=== PATIENT | male | born 1975 | race Caucasian/White ===

== ENCOUNTER → 2017-03-20 | Outpatient (CLI) | payer OTHER ==
--- NOTE | 2017-03-20 15:43 | KCIC ---
MRI Lumbar Spine without contrast History: Lumbar radiculopathy, chronic low back pain into the left leg, numbness in left leg and foot, lifting injury many years ago Technique: Multiplanar, multi sequential noncontrast MR imaging was performed of the lumbar spine. Contrast: None Comparison: None Findings: Lumbar vertebral body stature and AP alignment are preserved. There is mild degenerative disc disease L5-S1, posterior annular tear at this level. There is no significant marrow edema. Conus terminates normally at L1-2. L3-L4: Neural foramina and spinal canal are adequate. L4-L5: Spinal canal and neural foramina are adequate. L5-S1: There is a very shallow posterior central protrusion on the order of 2 to 3 mm AP by 13 mm transverse by 6 mm CC, near the descending right S1 nerve root without significant impingement. Spinal canal is overall adequate. Neural foramina are adequate. Impression: 1. There is mild degenerative disc disease at L5-S1, shallow posterior protrusion with associated annular tear at this level without significant impingement of the descending S1 nerve roots or spinal stenosis. Electronically signed by: Lew Peoples MD (03/20/2017 3:39 PM)
== END | disposition home or self-care (01) ==
LOC: KCIC MRI 14:39
PROVIDERS: ATTEND Anesthesiology Pain Medicine
DX: M51.37 Other intervertebral disc degeneration, lumbosacral region (principal)
CPT/HCPCS: 72148

== ENCOUNTER → 2020-01-21 | Outpatient (CLI) | payer OTHER ==
--- NOTE | 2020-01-21 09:47 | CARD ---
MR#: [id number] Date of Study: 01/21/2020 Ordering Physician: TORI QUINN, Referring Physician: TORI QUINN, Tech: Nicolle Prajapati APPROVED REPORT EXAM: Two-dimensional and M-mode echocardiogram with Doppler and color Doppler. Other Information Quality : GoodHR: 63bpm INDICATION Atrial Fibrillation RISK FACTORS Hyperlipidemia 2D DIMENSIONS RVDd3.3 (2.9-3.5cm)Left Atrium(2D)3.5 (1.6-4.0cm) IVSd1.2 (0.7-1.1cm)Aortic Root(2D)3.4 (2.0-3.7cm) LVDd5.2 (3.9-5.9cm)LVOT Diameter2.0 (1.8-2.4cm) PWd1.0 (0.7-1.1cm)LVDs4.1 (2.5-4.0cm) FS (%) 21.8 %SV57.1 ml LVEF(%)43.8 (>50%) Aortic Valve AoV Peak Aba.115.8cm/sAoV VTI25.5cm AO Peak GR.5.4mmHgLVOT Peak Aba.95.9cm/s LVOT VTI 20.68cmAO Mean GR.3mmHg SIDNEY (VMAX)1.64yx6CQZ (VTI)2.58cm2 Mitral Valve MV E Rpjgoowr453.0cm/sMV DECEL LZRL461yd MV A Qnaalhli53.9cm/sMV E Mean Gr.2mmHg MV SJI68npZ/A Ratio2.8 MVA (PHT)4.79cm2 TDI E/Lateral E'8.9E/Medial E'10.3 Pulmonary Valve PV Peak Spkqajda41.7cm/sPV Peak Grad.4mmHg Tricuspid Valve TR P. Vtwqergm916uc/sRAP SLFSSQEN2bfMg TR Peak Gr.50lfZqYUCP00aaRt Pulmonary Vein S1 Shtvtwjd89.4cm/sD2 Jyokisea68.9cm/s PVa hxvkdncg120neor LEFT VENTRICLE The left ventricle is normal size. There is borderline concentric left ventricular hypertrophy. The l eft ventricular systolic function is normal. The Ejection Fraction is 55-60%. There is normal LV segm ental wall motion. The left ventricular diastolic function and filling is normal for age. RIGHT VENTRICLE The right ventricle is normal size. There is normal right ventricular wall thickness. The right ventr icular systolic function is normal. ATRIA The left atrium size is normal. The right atrium size is normal. The interatrial septum is intact wit h no evidence for an atrial septal defect or patent foramen ovale as noted on 2-D or Doppler imaging. AORTIC VALVE The aortic valve is normal in structure and function. Doppler and Color Flow revealed no significant aortic regurgitation. There is no significant aortic valvular stenosis. MITRAL VALVE The mitral valve is normal in structure and function. There is no evidence of mitral valve prolapse. There is no mitral valve stenosis. Doppler and Color Flow revealed no mitral valve regurgitation note d. TRICUSPID VALVE The tricuspid valve is normal in structure and function. Doppler and Color Flow revealed trace tricus pid regurgitation with an estimated PAP of 19 mmHg. There is no tricuspid valve stenosis. PULMONIC VALVE The pulmonary valve is normal in structure and function. Doppler and Color Flow revealed trace pulmon ic valvular regurgitation. GREAT VESSELS The aortic root is normal in size. The ascending aorta is normal in size. The IVC is normal in size a nd collapses >50% with inspiration. PERICARDIAL EFFUSION There is no evidence of significant pericardial effusion. Critical Notification Critical Value: No <Conclusion> The left ventricular systolic function is normal. The Ejection Fraction is 55-60%. There is normal LV segmental wall motion. Trace tricuspid regurgitation with an estimated PAP of 19 mmHg. There is no evidence of significant pericardial effusion. Signed by : Walter Mulligan, Electronically Approved : 01/21/2020 09:47:31
--- NOTE | 2020-01-21 12:23 | RAD ---
MR#: [id number] Date of Study: 01/21/2020 Ordering Physician: TORI COOLEY, Referring Physician: MILADY ANDREA Tech: RT Margarita ([place]) (N) APPROVED REPORT Test Type: Exercise Stress Nurse/Tech: Elisabeth Carmen R.N. Test Indications: palpitations Cardiac History: none Medications: see ehr Medical History: see ehr Resting ECG: SR see printout Resting Heart Rate: 60 bpm Resting Blood Pressure: 122/81mmHg Pretest Chest Pain: No chest pain Nurse/Tech Notes lungs cta, heart tones regular Consent: The procedure was explained to the patient in lay terms. Informed consent was witnessed. Av eout was entered into [employer]. History and Stress Test performed by RT Margarita ([place]) (N) Stress Symptoms No chest pain or symptoms. POST EXERCISE Reason for Termination: Reached target heart rate Target HR: Yes Max HR: 167 bpm 94% of Maximum Predicted HR: 178 bpm Exercise duration: 11:01 min:sec, 4 Stage Exercise capacity: 13.4METs Max Blood Pressure: 161/82mmHg Blood Pressure response to exercise: Normal blood pressure response during stress. Heart Rate response to exercise: normal Chest Pain: No. Arrhythmia: Yes. single PVCs ST Change: Yes. ST depression noted in mult leads during exercise, resolved with recovery INTERPRETATION Stress EKG Conclusion: No evidence of ischemia. Imaging Protocol IMAGE PROTOCOL: Rest Tc-99m/stress Tc-99m 1 day Rest: Stress: Viability: Radiopharm.Tc99m MfmxdaiakAs77o Sestamibi Dose10.7mCi 31mCi Duration 15min. 10min. Img Date 01/21/2020 01/21/2020 Inj-Img Nsyn66kzp. 45min. Rest Admin Site:IV - Left AntecubitalAdministrator:RT Margarita ([place])(N) Stress Admin Site: IV - Left AntecubitalAdministrator: RT Margarita (R)(N) STRESS DATA End Diast. Vol.112.0mlAv. Heart Rate85.0bpm End Syst. Vol.31.0mlCO Index BSA0.0L/min Myocardial Yncx340.0gEject. Kuqhzzhu60.0% Stress Rates Pk. Fill Rate2.82EDV/secLVtime Pk. Fill 188.42msec Pk. Empty Rate4.51ESV/secLVtime Pk. Asrmn276.65msec 1/3 Pk. Fill0.68EDV/sec Stress Scores Regional WT0.00Summed WT0.00 Regional WM0.00Summed WM0.00 The rest and stress images show normal perfusion, normal contraction and thickening. LV Perf. Quant 17 Seg. SSS0.00 17 Seg. SRS1.00 17 Seg. SDS0.00 Stress Defect Extent (% LAD)0.00Rest Defect Extent (% LAD)0.00Rev. Defect Extent (% LAD)0.00 Stress Defect Extent (% LCX) 0.00Rest Defect Extent (% LCX)0.00Rev. Defect Extent (% LCX)0.00 Stress Defect Extent (% RCA)0.00Rest Defect Extent (% RCA)0.00Rev. Defect Extent (% RCA)0.00 Stress Defect Extent (% SARITHA)0.00Rest Defect Extent (% SARITHA)0.00Rev. Defect Extent (% SARITHA)0.00 Other Information Quality:Good Risk Assessment: Low Risk Conclusion 1. No evidence of EKG changes with stress testing. 2. Normal perfusion at stress/rest. 3. Low risk study. 4. EF > 60%. Signed by : Tori Cooley, Electronically Approved : 01/21/2020 12:23:08
== END | disposition home or self-care (01) ==
LOC: NM 08:04
PROVIDERS: ATTEND Internal Medicine Cardiovascular Disease
DX: I51.7 Cardiomegaly (principal); I49.3 Ventricular premature depolarization; I48.91 Unspecified atrial fibrillation
CPT/HCPCS: 78452; 93017; 93306; A9500

== ENCOUNTER → 2020-02-03 | Outpatient (CLI) | payer OTHER ==
--- NOTE | 2020-02-04 08:32 | CARD ---
MR#: [id number] Date of Study: 02/03/2020 Ordering Physician: TORI QUINN, Referring Physician: TORI QUINN, Tech: APPROVED REPORT Procedure: Loop recorder implantation. Indication: Arrhythmia Details: After appropriate informed consent the patient was prepped and draped in usual sterile fashion. After 1% lidocaine local anesthesia a small 0.5inch incision was made and a subcutaneous tunnel was made a nd through this a [employer] Linq device was placed w/o difficulty. The incision was closed with steri strips. No acute complications <Conclusion> Successful Loop recorder insertion for evaluation of arrhythmias. Signed by : Tori Quinn, Electronically Approved : 02/04/2020 08:32:09
== END | disposition home or self-care (01) ==
LOC: LINQ 11:35
PROVIDERS: ATTEND Internal Medicine Cardiovascular Disease
DX: I49.8 Other specified cardiac arrhythmias (principal); I48.91 Unspecified atrial fibrillation; R00.2 Palpitations
CPT/HCPCS: 33285; C1764

== ENCOUNTER 2021-03-07 08:54 | Outpatient (CLI) | payer OTHER ==
[~2021-03-07] VITALS: Ht 177.8 cm; Wt 86.8 kg
[2021-03-07 09:24] VITALS: BP 120/81
[2021-03-07] MEDS ORDERED: ATOR20TA PO (09:35)
[2021-03-07] MEDS ORDERED: MV-M1TAB7 PO (09:35)
[2021-03-07] MEDS ORDERED: ZOLP5TAB PO (09:35)
[2021-03-07] MEDS ORDERED: IBUP200T44 PO (09:35)
[2021-03-07] MEDS ORDERED: LIDOCAINE 2%/EPI 1:100,000 20 ML VIAL. ONE (10:49)
[2021-03-07] MEDS ORDERED: LIDOCAINE 1%/EPI 1:100,000 20 ML VIAL. INJ ONE (11:15)
--- NOTE | 2021-03-07 11:28 | CARD ---
MR#: [id number] Date of Study: 03/07/2021 Ordering Physician: TORI QUINN, Referring Physician: TORI QUINN, Tech: APPROVED REPORT EXAM Loop Recorder FL TIME: 0.1 MINS DOSE: .08 GYCM2 INDICATIONS 45-year-old male who previously had a loop recorder placed for a history of syncope presented to the [facility] today for loop recorder removal. After proper informed consent the left chest was prepped a nd draped in usual sterile fashion. Under 2% lidocaine local anesthesia a 0.5 inch incision was made at the site of the previous loop recorder implantation. Using blunt dissection the recorder was eas ramses palpated and removed. The incision was then closed with Dermabond and Steri-Strips. The patient tolerated the procedure well. No acute complications noted. CONCLUSION 1. Successful removal of a implantable loop recorder. Signed by : Tori Quinn, Electronically Approved : 03/07/2021 11:27:35
[2021-03-07 11:35] VITALS: BP 145/83
--- NOTE | 2021-03-07 11:46 | NUR ---
Discharge Note: TING HOBBS Discharge instructions and discharge home medications reviewed with Patient and a copy given. All questions have been answered and understanding verbalized. The following instructions and handouts were given: incision site care Loop recorder explant completed. Dressing site to L chest intact. Patient discharged to Home or Self Care with Spouse via Ambulated JS RN Addendum: 03/07/21 at 1149 by GISELL KINSEY RN Amended: Links added.
== END 2021-03-07 11:45 | disposition home or self-care (01) ==
LOC: CCL 08:54
PROVIDERS: ATTEND Internal Medicine Cardiovascular Disease
DX: R55 Syncope and collapse (principal); I10 Essential (primary) hypertension; E78.00 Pure hypercholesterolemia, unspecified; E03.9 Hypothyroidism, unspecified; Z98.890 Other specified postprocedural states; Z79.899 Other long term (current) drug therapy
CPT/HCPCS: 33286; J3490